=== PATIENT | male | born 1995 | race Caucasian/White ===

== ENCOUNTER 2023-11-26 02:46 | Outpatient (CLI) | payer OTHER, SELFPAY | END 2023-11-26 02:47 | disposition home or self-care (01) | LOC: AMB 12-11 06:24 | PROVIDERS: Visit Provider Emergency Medicine | DX: S89.91XA Unspecified injury of right lower leg, initial encounter (principal); W13.8XXA Fall from, out of or through other building or structure, initial encounter; Y93.I9 Activity, other involving external motion; Y92.815 Train as the place of occurrence of the external cause | CPT/HCPCS: A0425; A0427 ==

== ENCOUNTER 2023-11-26 03:07 | Emergency (ER) | payer OTHER, SELFPAY ==
[2023-11-26 03:13] VITALS: BP 119/77; PULSE 75; RESP 18; TEMP 36.7; O2SAT 99; BMI 21.8
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
--- NOTE | 2023-11-26 03:35 | CRLHL7_ITS ---
For Patients: As a result of the Century Cures Act, medical imaging exams and procedure reports are released immediately into your electronic medical record. You may view this report before your referring provider. If you have questions, please contact your health care provider. Indication: Left upper quadrant abdominal pain and trauma Technique: Volumetric multidetector CT images of the abdomen and pelvis were obtained after the administration of intravenous contrast. 66 cc Isovue 370 low osmolar intravenous contrast Comparison: None available. Findings: The lung bases are clear. The liver is normal in attenuation without intrahepatic biliary ductal dilatation. The portal vein is patent. The gallbladder is unremarkable without evidence of radiopaque calculus. There is no significant common biliary ductal dilatation or abrupt cut off. The spleen is normal in size with demonstration of a small linear defect along the anterior aspect. This is seen on series 2, image 34. There is no evidence of associated hemorrhage. There is a punctate splenule seen along the inferior aspect of the spleen. The stomach and duodenum are grossly unremarkable. The pancreas is normal in enhancement without significant atrophy. The adrenal glands are unremarkable. The kidneys demonstrate preserved corticomedullary differentiation without evidence of obstructive uropathy. There is a mild amount of stool seen throughout the colon. There is mild distal colonic diverticulosis. The appendix is unremarkable. There is no significant mesenteric, retroperitoneal, or pelvic sidewall lymph nodes. The aorta is nonaneurysmal. There is no significant atherosclerotic disease appreciated. The solid pelvic viscera are grossly unremarkable. There is no free fluid or free air. The anterior abdominal wall is intact without significant hernias. The lumbar vertebral body heights are grossly maintained in satisfactory alignment without evidence of displaced fracture, lytic or blastic lesion. Impression: Demonstration of a small linear hypodensity within the anterior superior aspect of the spleen seen best on series 2, image 34 which could represent a small cyst and/or cleft. There is a small splenule along the inferior aspect of the spleen. No evidence of hemorrhage. Otherwise, no acute intra-abdominal abnormality is appreciated. Please note that all CT scans at this facility use dose modulation, iterative reconstruction, and/or weight-based dosing when appropriate to reduce radiation dose to as low as reasonably achievable. Dictated by Pedro Luis Bolden MD @ 11/26/2023 5:03:58 AM (Electronically Signed)
--- NOTE | 2023-11-26 03:35 | CRLHL7_ITS ---
For Patients: As a result of the Cures Act, medical imaging exams and procedure reports are released immediately into your electronic medical record. You may view this report before your referring provider. If you have questions, please contact your health care provider. Indication: Fall, laceration on right knee Comparison: None available. Technique: Standing AP, lateral, and sunrise views of the right knee were obtained Findings: There is no displaced fracture or dislocation. The joint spaces are grossly preserved. There is a soft tissue laceration of the lateral soft tissues adjacent to the femoral condyle with additional mild prepatellar soft tissue swelling. Impression: Prepatellar and lateral soft tissue swelling with soft tissue laceration along the lateral aspect of the knee. No evidence of underlying displaced fracture or joint effusion. Dictated by Pedro Luis Bolden MD @ 11/26/2023 4:54:15 AM (Electronically Signed)
[2023-11-26 03:47] LABS: Appearance Urine Clear (Clear); Bilirubin Urine 1+ (Negative); Blood Urine Negative (Negative); Color Urine Yellow (Yellow); Glucose Urine Negative (Negative); Ketones Urine 1+ (Negative); Leukocyte Esterase Urine Negative (Negative); Nitrite Urine Negative (Negative); Protein Urine 1+ (Negative); Specific Gravity Urine >= 1.030 (1.000-1.030); Urobilinogen Urine 0.2 (0.2-1.0); pH Urine 5.5 (5.0-8.5)
[2023-11-26] MEDS: LIDOCAINE/EPINEP/TETRACAINE 3 ML GEL..ML. TOPICAL (03:48)
[2023-11-26 03:56] LABS: Bacteria Urine Few; Mucus Urine Moderate; RBC Urine 0-2 (0-2); Squamous Epithelial Cell Urine Few (None-Few); WBC Urine 0-2 (0-5)
[2023-11-26] MEDS: 0.9 % SODIUM CHLORIDE 1000 ml 1,000 ML IV (04:42)
[2023-11-26] MEDS: MORPHINE 4 MG/ML INJ IVP (05:04)
[2023-11-26] MEDS: KETOROLAC 15 MG/ML inj IVP (05:04)
[2023-11-26 05:06] VITALS: O2SAT 99
[2023-11-26 06:14] VITALS: BP 121/78; PULSE 78; RESP 18; TEMP 36.7; O2SAT 99
[2023-11-26 06:55] VITALS: TEMP 36.7
--- NOTE | 2023-11-26 09:15 | ED.NURSE ---
Pt showered, breakfast tray provided.
== END 2023-11-26 09:42 | disposition home or self-care (01) ==
PROVIDERS: Emergency Provider Family Medicine
DX: S81.011A Laceration without foreign body, right knee, initial encounter (principal)
CPT/HCPCS: 12002; 73562; 74177; 81001; 87086; 94761; 96374; 96375; 99284; J1885; J2270; J7030; Q9967